=== PATIENT | male | born 1930 | race Caucasian/White ===

== ENCOUNTER 2016-11-04 10:53 | Day surgery (SDC) | payer MEDICAID, MEDICARE ==
--- OUTSIDE RECORDS SUMMARY | 2016-11-04 11:03 | XMS REPORT | Continuity of Care Document ---
:1930 Author Organization [facility] Address [place] [address] Care Team Providers Name Role Phone Tonny Rodriguez Primary Care Provider [phone] Source Comments This disclosure is being made pursuant to the [employer] program and maynot contain all information available regarding this patient.[facility] Active Allergies and Adverse Reactions Allergen Noted Date Severity Reactions Comments Penicillins 09/25/2015 High Hives Current Medications Be aware that medications may not be up to date as of this document. Alwaysverify current medications with the patient. Prescription Sig. Disp. Refills Start Date End Date Status albuterol (PROVENTIL) (2.5 Inhale into the Active MG/3ML) 0.083% nebulizer lungs as needed. solution norethindrone (MICRONOR) Take 81 mg by Active 0.35 MG tablet mouth daily. PROAIR HFA 108 (90 BASE) as needed. 0 09/18/2015 Active MCG/ACT inhaler tamsulosin HCl (FLOMAX) Take 0.4 mg by 3 08/14/2015 Active 0.4 MG capsule mouth daily. NITROSTAT 0.4 MG SL tablet as needed. 0 07/23/2015 Active metoprolol succinate Take 25 mg by 0 07/05/2015 Active (TOPROL-XL) 25 MG 24 hr mouth daily. 1/2 tablet tablet Active Problems Not on file Most Recent Encounters Date Type Specialty Providers Description 10/21/2016 Scanned Document Ophthalmology Provider, Not In System 10/15/2016 Data Import 09/02/2016 Scanned Document Ophthalmology Provider, Not In System Social History Tobacco Use Types Packs/Day Years Used Date Never Smoker Plan of Care Health Maintenance Due Date Last Done Comments Tetanus/Pertussis (1 - Tdap) 1951 Well Adult Visit 1982 Zoster Vaccine 60+ 1992 Pneumococcal Low/Medium Risk 65+ (1 of 2 - PCV13) 1997 Influenza Immunization (#1) 2016 Results from Last 3 Months Not on file
--- OUTSIDE RECORDS SUMMARY | 2016-11-04 11:04 | XMS REPORT | Continuity of Care Document ---
:1930 Author Organization [facility] ([facility]) Address [address] [place] [address] Phone [phone] Care Team Providers Name Role Phone Tonny Rodriguez Primary Care Provider [phone] Source Comments This disclosure is being made pursuant to the Care Everywhere program, applicable federal and state laws, and may not contain all informaitonavailable regarding this patient.[facility] ([facility]) Active Allergies and Adverse Reactions Allergen Noted Date Severity Reactions Comments Penicillins 10/06/2011 Urticaria (Hives) Current Medications Prescription Sig. Disp. Refills Start Date End Date Status DOXAZOSIN MESYLATE Take by mouth. Active (DOXAZOSIN PO) albuterol (PROAIR HFA) Use 2 Puffs by Active 90 mcg/Actuation inhalation every 6 inhaler hours as needed. budesonide-formoterol Use 2 Puffs by Active (SYMBICORT) 80-4.5 inhalation 2 times mcg/Actuation inhaler daily. aspirin 81 mg EC Take 81 mg by mouth Active tablet daily. nitroglycerin place 0.4 mg under Active (NITROSTAT) 0.4 mg SL the tongue every 5 tablet minutes as needed. metoPROLol succinate Take 1 Tab by mouth 30 Tab 6 10/17/2012 Active 25 mg XL tablet daily. Indications: HYPERTENSION Active Problems Not on file Social History Tobacco Use Types Packs/Day Years Used Date Former Smoker 1 60 Quit: 08/11/2011 Last Filed Vital Signs Vital Sign Reading Time Taken Blood Pressure 142/70 10/06/2011 2:34 PM CDT Pulse 56 10/06/2011 2:34 PM CDT Temperature - - Respiratory Rate 14 10/06/2011 2:34 PM CDT Height - - Weight 78.926 kg (174 lb) 10/06/2011 2:34 PM CDT Body Mass Index - - Oxygen Saturation - - Plan of Care Health Maintenance Due Date Last Done Comments Hepatitis B Vaccine (1 of 3 - Primary Series) 1930 Tdap Vaccine 1943 Lipid Disorder Screening 1950 Td Vaccine 1950 Colonoscopy 1982 Zoster Vaccine 1992 Pneumococcal Vaccine (1 of 2 - PCV13) 1997 Influenza Vaccine: Seasonal (#1) 02/17/2016 Results from Last 3 Months Not on file
[2016-11-04] MEDS ORDERED: NORMAL SALINE 1,000 ML IV PRN (11:22)
[2016-11-04] MEDS ORDERED: RINGERS SOLUTION,LACTATED 1,000 ML IV ONE (12:55)
--- NOTE | 2016-11-04 13:48 | OR ---
Operative Report - Dictated Report Narrative: Location: Main OR Anesthesia: General Surgeon: Dr. Cruz Preoperative diagnosis: Right distal ureteral calculus Postoperative diagnosis: Same, evidence of possible upper tract infection, very abnormal bladder with heavy trabeculation/multiple diverticula/permanent damage predating TURP, evidence of resolving cystitis ] Procedure: #1 Cystoscopy with right ureteral washing for culture and retrograde pyelograms #2 Right stone manipulation without removal and placement of a 7 by multi length double j stent Indications: 86-year-old male admitted locally for possible urosepsis discovered to have a stone on CT 8 mm x 1 cm. Conservative measures taken however patient did not pass stone confirmed by repeat imaging. Unlikely to pass at this side and with potential infection onboard I saw him in the office today discussed options and elected to proceed with the above-mentioned procedure Description: Consent obtained. Patient brought to the operating room where general endotracheal anesthesia was induced. Placed in the dorsal lithotomy position. Prepped and draped. Timeout taken. Rigid cystoscope introduced into the bladder with ease and quick cystoscopy revealed no tumors, stones or suspicious lesions . There were a few smaller stones in the bladder itself under a couple millimeters which were removed. Bladder is heavily trabeculated with multiple large diverticula and evidence permanent bladder damage predating his TURP. Prostate fossa otherwise looks okay. Bladder neck is a little distorted and it is not easy to identify ureters. I brought in a 70 lens and I was able to see the right ureteric orifice. 5 Spanish catheter and angled Glidewire was used. I was able successfully intubate the right ureteric orifice with the angled Glidewire and then I advanced the 5 Spanish catheter. Wire was removed before retrograde was obtained. Right retrograde obtained and interpreted by Dr. Frank. Large shadowing filling defect was located in the distal ureter. Ureter proximal to it had several areas of what appeared to be tortuosity and narrowing likely related to chronic obstruction. Upon passage of wire there was prompt drainage of some urine with debris/concerning for possible infection given his prior history. I was able to successfully manipulate the wire and the stone more proximally and create some space at which point it was easier to navigate the 5 Spanish catheter up the tortuous portions of the ureter and all the way to the renal pelvis. I switched the angled Glidewire for a Super Stiff wire and I removed the 5 Spanish catheter without significant resistance. Stone appeared lodged in the more dilated portion of the ureter just upstream from where the stone was lodged. With the stone manipulated in that location I was able to place a 7 by multi length double-J stent without much incident. I had to use multi length secondary to that being the only 7 Spanish stent I had and I wanted to maximally dilate the distal ureter as it did appear fairly tight. I was happy with the curls proximally and distally. Prior to removal of the 5 Spanish catheter I did perform a washing of the right upper tract and sent that for culture. Specimen: Right ureteral washing for culture EBL: 5 ml Condition: tolerated procedure Important findings: Very abnormal bladder with evidence of permanent damage and multiple diverticula. Also with evidence of resolving cystitis. Obstructing right stone with abnormal ureter and possible infection on the backside post successful manipulation with stenting. Follow-up: We will depending on how he does. If he spikes temperature gets worse I would wait a full week before treating if not may proceed sooner. Would benefit from passive dilation. My only other concern is his bladder has a lot of permanent damage and he has catheterized before so if unable to void may need to go home with catheter. So far the catheter is out
[2016-11-04] MEDS ORDERED: ALBUTEROL SULFATE 2.5 MG/3 ML VIAL.NEB IH ONE (16:30)
[2016-11-04 16:46] VITALS: BP 145/84
== END 2016-11-04 10:54 | disposition home or self-care (01) ==
LOC: AMB 10:53
PROVIDERS: ATTEND Urology
PROC: 0WHR8YZ Insertion of Other Device into Genitourinary Tract, Via Natural or Artificial Opening Endoscopic (ICD-10-PCS; 2016-11-04)
PROC: 0T768DZ Dilation of Right Ureter with Intraluminal Device, Via Natural or Artificial Opening Endoscopic (ICD-10-PCS; principal; 2016-11-04 16:50)
DX: N20.1 Calculus of ureter (principal); N32.89 Other specified disorders of bladder; N40.1 Benign prostatic hyperplasia with lower urinary tract symptoms; N13.8 Other obstructive and reflux uropathy; F17.210 Nicotine dependence, cigarettes, uncomplicated; Z68.29 Body mass index [BMI] 29.0-29.9, adult

== ENCOUNTER 2016-11-18 09:40 | Day surgery (SDC) | payer MEDICARE ==
[~2016-11-18 09:40] MED LIST: CIPROFLOXACIN HCL 500 MG TABLET PO PRN
--- OUTSIDE RECORDS SUMMARY | 2016-11-18 09:44 | XMS REPORT | Continuity of Care Document ---
:1930 Author Organization [facility] [place] [address] Care Team Providers Name Role Phone Michael Tonny Cyndie Primary Care Provider [phone] Source Comments This disclosure is being made pursuant to the [employer] program and maynot contain all information available regarding this patient.[facility] Active Allergies and Adverse Reactions Allergen Noted [...] tablet tablet Active Problems Not on file Social History [...]
--- OUTSIDE RECORDS SUMMARY | 2016-11-18 09:45 | XMS REPORT | Continuity of Care Document ---
:1930 Author Organization [facility] ([facility]) Address [address] [place] [address] Phone [phone] Care Team Providers Name Role Phone Tonny Rodriguez Primary Care Provider [phone] Source Comments This disclosure is being made pursuant to the Care Everywhere program, applicable federal and state laws, and may not contain all informaitonavailable regarding this patient.[facility] ([facility]) Active Allergies and Adverse Reactions Allergen [...]
[2016-11-18] MEDS ORDERED: LIDOCAINE HCL 10 APPL CARTRIDGE TP ONE (13:30)
--- NOTE | 2016-11-18 13:40 | OR ---
Operative Report - Dictated Report Narrative: Preoperative diagnosis: Indwelling stent Postoperative diagnosis: Same Anesthesia: Lidocaine jelly per urethra Procedure: Flexible cystoscopy with stent removal Indications: Indwelling stent Descritpion: Consent obtained. Patient prepped and drapped. Lidocaine jelly used to anesthetize urethra. Flexible scope inserted and navigated to bladder. Stent identified, grasped and pulled per urethra. Patient tolerated. EBL: 0 ml Specimen: None Condition: Tolerated procedure Follow-up: I will see the patient in 6 months with KUB/UA/ultrasound/ creatinine. Sooner if trouble. I am going to send him home on 3 days of Diflucan secondary to high probability of colonization with yeast.
[2016-11-18 14:14] VITALS: BP 157/95
== END 2016-11-18 09:41 | disposition home or self-care (01) ==
LOC: AMB 09:40
PROVIDERS: ATTEND Urology
PROC: 0TP98DZ Removal of Intraluminal Device from Ureter, Via Natural or Artificial Opening Endoscopic (ICD-10-PCS; principal; 2016-11-18 13:00)
DX: Z46.6 Encounter for fitting and adjustment of urinary device (principal); N40.1 Benign prostatic hyperplasia with lower urinary tract symptoms; N13.8 Other obstructive and reflux uropathy; F17.200 Nicotine dependence, unspecified, uncomplicated; Z68.21 Body mass index [BMI] 21.0-21.9, adult